=== PATIENT | female | born 1985 | race Asian ===

== ENCOUNTER 2018-04-11 20:00 | Emergency (ER) | payer BC ==
[~2018-04-11] VITALS: Ht 170.2 cm; Wt 61.7 kg
[2018-04-11] MEDS ORDERED: IBUPROFEN400 MG PO (20:35)
[2018-04-11] MEDS ORDERED: BACTRIM DS TAB1 EACH PO (20:35)
== END 2018-04-11 20:45 | disposition home or self-care (01) ==
LOC: FSED 20:00
DX: N76.4 Abscess of vulva (principal)
CPT/HCPCS: 99283